=== PATIENT | female | born 1960 | race Caucasian/White ===

== ENCOUNTER → 2018-10-11 | Outpatient (CLI) | payer OTHER ==
[2018-10-11 16:46] VITALS: BP 139/85; PULSE 81; RESP 16; TEMP 97.6; BMI 44.9
--- NOTE | 2018-10-11 17:12 | P.HPBAR ---
Bariatric H&P - History & Physicial H&P Date: 10/11/18 History & Physicial: Visit/CC: band removal Patient initial contact: Initial weight: 121.223 kg Initial weight in pounds: 267.25 Height: 5 ft 5 in Initial BMI: 44.4 Last weight: Current weight: 122.47 kg Current weight in pounds: 270.00 Current BMI: 44.9 [place] body weight (based on NIH guidelines): 56.699 kg Excess body weight loss: The patient is a 57 year-old F who presents for Bariatric Assessment. HPI: She comes in with problems with her band. She is looking to have her band removal. ASSESSMENT: 1. Morbid obesity PLAN: 1. Removal of band 2. Band is mal-positioned. Recommend CT for new abdominal wall mass. Past Medical History Smoking Status: Unknown if ever smoked Surgical - Exam Vital Signs Temp Pulse Resp BP 97.6 F 81 16 139/85 10/11/18 16:43 10/11/18 16:43 10/11/18 16:43 10/11/18 16:43 Bariatric Checklist Checklist: Plan: Checklist: EGD: 1. Hiatal hernia: 2. H. Pylori: HgbA1c: Vitamin D: Smoking: Unknown if ever smoked Primary care physician referral: Psychiatry clearance: Cardiology clearance: Sleep study: Diet journal: VTE risk score: VTE risk level: Rehab needs at discharge:
== END ==
LOC: BARWHC3 06-07 14:31
PROVIDERS: ATTEND Surgery Plastic and Reconstructive Surgery
DX: E66.01 Morbid (severe) obesity due to excess calories (principal); Z68.41 Body mass index [BMI] 40.0-44.9, adult
CPT/HCPCS: 99211

== ENCOUNTER → 2018-10-21 | Outpatient (CLI) | payer OTHER ==
--- NOTE | 2018-10-23 04:22 | CT ---
EXAMINATION TYPE: CT abdomen pelvis w con DATE OF EXAM: 10/21/2018 COMPARISON: NONE HISTORY: 57-year-old female RLQ pain and Diverticulitis TECHNIQUE: Contiguous axial scanning of the abdomen and pelvis following administration of 100 ml Iso brenda 300 IV contrast. Delayed images through the kidneys and coronal/sagittal reconstructions perform ed. CT DLP: 1913 mGycm Automated exposure control for dose reduction was used. FINDINGS: Heart normal size without pericardial effusion. Some strandy atelectasis or scarring within the lower lungs. No pleural effusion. Small hiatal hernia. A lap band device is in place. Liver mildly enlarged at 18.2 cm. No biliary ductal dilatation. Portal venous system is patent. Cholecystectomy clips. Adrenal glands, kidneys, spleen, and pancreas appear within normal limits. No dilated small bowel, free fluid, or free air. No mesenteric or retroperitoneal lymphadenopathy. Scattered mild atherosclerotic calcifications infrarenal abdominal aorta and iliac arteries. The appendix is not discretely visualized. No secondary signs of acute appendicitis. Dropped surgical clip in the right subphrenic region and also right lower quadrant. Mild to moderate stool. Minimal diverticular change in the sigmoid colon. No pericolonic inflammatory change. Bladder is urine distended. Uterus surgically absent. Phleboliths in the pelvis. Neither ovary is vis ualized. No abnormal fluid collection in the pelvis or pelvic lymphadenopathy. Bones: No osseous destructive process. IMPRESSION: LAP BAND DEVICE IN PLACE. SMALL HIATAL HERNIA. MILD HEPATOMEGALY (18.2 CM). MILD DIVERTICULAR CHANGE IN THE SIGMOID COLON. NO EVIDENCE FOR ACUTE DIVERTICULITIS.
== END | disposition home or self-care (01) ==
LOC: RADCTMAIN 10:55
PROVIDERS: ATTEND Surgery Plastic and Reconstructive Surgery
DX: K44.9 Diaphragmatic hernia without obstruction or gangrene (principal); R16.0 Hepatomegaly, not elsewhere classified
CPT/HCPCS: 74177; Q9967

== ENCOUNTER → 2018-11-08 | Outpatient (CLI) | payer OTHER ==
[2018-11-08 14:41] VITALS: BP 134/70; PULSE 75; TEMP 98.3; BMI 44.6
--- NOTE | 2018-11-08 14:46 | P.PN ---
Subjective Progress Note Date: 11/08/18 Reviewed lower scope for NO diverticulosis. band in position and port. Wants removal. Objective - Vital Signs Vital signs: Vital Signs Temp 98.3 F 11/08/18 14:29 Pulse 75 11/08/18 14:29 Resp BP 134/70 11/08/18 14:29 Pulse Ox Intake & Output 11/07/18 11/08/18 11/08/18 18:59 06:59 18:59 Weight 121.563 kg
== END | disposition home or self-care (01) ==
LOC: BARWHC3 13:03
PROVIDERS: ATTEND Surgery Plastic and Reconstructive Surgery
DX: Z48.815 Encounter for surgical aftercare following surgery on the digestive system (principal)
CPT/HCPCS: 99211

== ENCOUNTER → 2019-01-03 | Outpatient (CLI) | payer OTHER ==
[2019-01-03 13:09] VITALS: BP 125/84; PULSE 76; TEMP 97.2; BMI 43.2
--- NOTE | 2019-01-03 14:14 | P.PN ---
Subjective Progress Note Date: 01/03/19 DATE OF SERVICE: 01/03/2019 CHIEF COMPLAINT: Morbid obesity HISTORY OF PRESENT ILLNESS: Viktoria Boyd is a 58-year-old female who comes in with lifelong morbid obesity. She comes in with complications from her adjustable gastric band including intolerance to band fills and gastroesophageal from her band. As a result of her obesity, she has co-morbidities including osteoarthritis of the knees. At height of 5 feet 5 inches, her ideal body weight is 149 pounds. Highest of 270 pounds, BMI 45.0. Today she comes in 259 pounds from 267 pounds 2 months ago. BMI is 43.3. She has lost 8 pounds in 2 months. She is 110 pounds overweight. PAST MEDICAL HISTORY: 1. Morbid obesity due to excess calories 2. Body mass index of 44.9, initial 3. Seasonal ALLERGIES 4. Osteoarthritis of the knees. 5. Gastroesophageal reflux disease. PAST SURGICAL HISTORY: 1. Lap band placement 2. Bilateral knee arthroscopy 3. Hysterectomy 4. Cholecystectomy HOME MEDICATIONS: Home Medications Medication Instructions Recorded Confirmed Fexofenadine HCl [Lisa Allergy] 60 mg PO DIRECTED 10/20/18 10/20/18 Fluticasone Propionate [Flonase 1 spr INTRANASAL DIRECTED 10/20/18 10/20/18 Allergy Relief] ALLERGIES: Allergies Allergy/AdvReac Type Severity Reaction Status Date / Time latex Allergy Rash/Hives Verified 10/20/18 12:27 Penicillins Allergy Rash/Hives Verified 10/20/18 12:27 tetracycline Allergy Rash/Hives Verified 10/20/18 12:27 SOCIAL HISTORY: Past tobacco use. FAMILY HISTORY: No family history of ulcerative colitis disease or Crohn's disease. Family history of morbid obesity. No lupus in the family. No reports of stomach or esophageal cancer. REVIEW OF ORGAN SYSTEMS: CONSTITUTIONAL: At height of 5 feet 5 inches, her ideal body weight is 149 pounds. She comes in 270 pounds. Her body mass index is 45.0 HEENT: Denies any active troubles with vision or hearing. ENDOCRINE: No diabetes. No hypothyroidism. CARDIOVASCULAR: No past reports of palpitations or heart attacks or chest pain. RESPIRATORY: No daytime somnolence. No asthma. GASTROINTESTINAL: Denies any bright red blood per rectum. No diarrhea. No constipation. MUSCULOSKELETAL: Has lower back pain and joint pain. Has osteoarthritis of the knees. NEURO: No headaches. No seizure disorders. PSYCH: No depression. No suicidal ideation. RHEUMATOLOGIC: No lupus. No rheumatoid arthritis. HEMATOLOGIC: Denies any abnormal bleeding or bruising. No personal history of DVTs. SKIN: No rash. No skin cancer. PHYSICAL EXAM: VITAL SIGNS: Height 5 foot 5 inches, weight 259 pounds. BMI 43.3 Vital Signs Temp 97.2 F L 01/03/19 13:06 Pulse 76 01/03/19 13:06 Resp BP 125/84 01/03/19 13:06 Pulse Ox GENERAL: Well-developed in no acute distress. HEENT: No scleral icterus. Extraocular movements grossly intact. Hears conversational speech. No nasal drainage. NECK: Supple without lymphadenopathy. CHEST: Nonlabored respirations with equal bilateral excursions. CARDIOVASCULAR: Regular rate and regular rhythm. Distal 2+ pulses. ABDOMEN: Obese, soft, nontender, nondistended. Has no erythema at port site. MUSCULOSKELETAL: No clubbing, cyanosis. Gross strength 5/5 distal lower extremities. NEURO: No focal or lateralizing signs. Cranial nerves 2 through 12 grossly within normal limits. PSYCH: Appropriate affect. Alert and oriented to person, place and time. SKIN: Good skin turgor. Well perfused. LABS: EKG with premature ASSESSMENT: 1. Morbid obesity due to excess calories 2. Body mass index of 45.0 to 43.3 3. Seasonal ALLERGIES 4. Osteoarthritis of the knees. 5. Complications from adjustable gastric band PLAN: 1. Recommend band removal secondary to complications from her adjustable gastric band. 2. DVT prophylaxis 3. Antibiotic prophylaxis 4. Recommend 12-lead EKG 5. Recommend pre-surgical labs. Objective - Vital Signs Vital signs: Vital Signs Temp 97.2 F L 01/03/19 13:06 Pulse 76 01/03/19 13:06 Resp BP 125/84 01/03/19 13:06 Pulse Ox Intake & Output 01/02/19 01/03/19 01/03/19 18:59 06:59 18:59 Weight 117.934 kg
== END | disposition home or self-care (01) ==
LOC: BARWHC3 12:27
PROVIDERS: ATTEND Surgery Plastic and Reconstructive Surgery
DX: E66.01 Morbid (severe) obesity due to excess calories (principal); M17.0 Bilateral primary osteoarthritis of knee; K95.09 Other complications of gastric band procedure; J30.2 Other seasonal allergic rhinitis; Z68.42 Body mass index [BMI] 45.0-49.9, adult
CPT/HCPCS: 99211

== ENCOUNTER → 2019-01-03 | Outpatient (CLI) | payer OTHER ==
[2019-01-03 13:21] LABS: Basophils # (A) 0.2 k/uL (0-0.2); Basophils % (A) 2 %; Eosinophils # (A) 0.3 k/uL (0-0.7); Eosinophils % (A) 3 %; HCT 42.3 % (34.0-46.0); HGB 14.4 gm/dL (11.4-16.0); Lymphocytes # (A) 3.4 k/uL (1.0-4.8); Lymphocytes % (A) 35 %; MCH 30.2 pg (25.0-35.0); MCHC 34.2 g/dL (31.0-37.0); MCV 88.3 fL (80.0-100.0); Mean Platelet Volume 7.6; Monocytes # (A) 0.7 k/uL (0-1.0); Monocytes % (A) 7 %; Neutrophils # (A) 4.9 k/uL (1.3-7.7); Neutrophils % (A) 51 %; Platelet Count 302 k/uL (150-450); RBC 4.78 m/uL (3.80-5.40); WBC 9.6 k/uL (3.8-10.6)
[2019-01-03 13:35] LABS: ALT 29 U/L (9-52); AST 26 U/L (14-36); African American GFR (CKD) >90 (>60 ml/min/1.73 sqM); Albumin 4.5 g/dL (3.5-5.0); Alkaline Phosphatase 109 U/L (38-126); Anion Gap 10 mmol/L; Blood Urea Nitrogen 14 mg/dL (7-17); Calcium 9.7 mg/dL (8.4-10.2); Carbon Dioxide 24 mmol/L (22-30); Chloride 105 mmol/L (98-107); Glucose 86 mg/dL (74-99); Non-African American GFR(CKD) >90 (>60 ml/min/1.73 sqM); Potassium 4.5 mmol/L (3.5-5.1); Sodium 139 mmol/L (137-145); Total Bilirubin 0.5 mg/dL (0.2-1.3); Total Protein 7.7 g/dL (6.3-8.2)
== END | disposition home or self-care (01) ==
LOC: LABPAT 12:37
PROVIDERS: ATTEND Surgery Plastic and Reconstructive Surgery
DX: Z01.812 Encounter for preprocedural laboratory examination (principal); Z01.818 Encounter for other preprocedural examination
CPT/HCPCS: 36415; 80053; 85025; 93005

== ENCOUNTER 2021-02-02 07:16 | Day surgery (SDC) | payer OTHER ==
[2021-01-27 14:39] VITALS: BMI 42.4
[~2021-02-02 07:16] MED LIST: CHLORHEXIDINE GLUCONATE 15 ML CUP MUCOUS MEM PRN; DEXAMETHASONE SOD PHOSPHATE 4 MG/ML 1 ML VIAL IV ONE; ENOXAPARIN 40 MG/0.4 ML SYRINGE SQ PRN; LACTATED RINGERS 1,000 ML IV SCH; MIDAZOLAM 2 MG/2 ML VIAL IV PRN; ONDANSETRON 4 MG/2 ML VIAL IVP ONE; SCOPOLAMINE 1.5MG/72HR PATCH TRANSDERM ONE
--- NOTE | 2021-02-02 07:45 | P.GSHP ---
History of Present Illness H&P Date: 02/02/21 CHIEF COMPLAINT: Morbid obesity HISTORY OF PRESENT ILLNESS: Viktoria Boyd is a 60-year-old female who comes in with lifelong morbid obesity. She comes in with complications from her adjustable gastric band including intolerance to band fills and gastroesophageal from her band. As a result of her obesity, she has co-morbidities including osteoarthritis of the knees. At height of 5 feet 5 inches, her ideal body weight is 149 pounds. Highest of 270 pounds, BMI 45.0. Today she comes in 259 pounds from 267 pounds 2 months ago. BMI is 43.3. She has lost 8 pounds in 2 months. She is 110 pounds overweight. PAST MEDICAL HISTORY: 1. Morbid obesity due to excess calories 2. Body mass index of 44.9, initial 3. Seasonal ALLERGIES 4. Osteoarthritis of the knees. 5. Gastroesophageal reflux disease. PAST SURGICAL HISTORY: 1. Lap band placement 2. Bilateral knee arthroscopy 3. Hysterectomy 4. Cholecystectomy HOME MEDICATIONS: See below ALLERGIES:See below SOCIAL HISTORY: Past tobacco use. FAMILY HISTORY: No family history of ulcerative colitis disease or Crohn's disease. Family history of morbid obesity. No lupus in the family. No reports of stomach or esophageal cancer. REVIEW OF ORGAN SYSTEMS: CONSTITUTIONAL: At height of 5 feet 5 inches, her ideal body weight is 149 pounds. She comes in 270 pounds. Her body mass index is 45.0 HEENT: Denies any active troubles with vision or hearing. ENDOCRINE: No diabetes. No hypothyroidism. CARDIOVASCULAR: No past reports of palpitations or heart attacks or chest pain. RESPIRATORY: No daytime somnolence. No asthma. GASTROINTESTINAL: Denies any bright red blood per rectum. No diarrhea. No constipation. MUSCULOSKELETAL: Has lower back pain and joint pain. Has osteoarthritis of the knees. NEURO: No headaches. No seizure disorders. PSYCH: No depression. No suicidal ideation. RHEUMATOLOGIC: No lupus. No rheumatoid arthritis. HEMATOLOGIC: Denies any abnormal bleeding or bruising. No personal history of DVTs. SKIN: No rash. No skin cancer. PHYSICAL EXAM: VITAL SIGNS: Height 5 foot 5 inches, weight 259 pounds. BMI 43.3 GENERAL: Well-developed in no acute distress. HEENT: No scleral icterus. Extraocular movements grossly intact. Hears conversational speech. No nasal drainage. NECK: Supple without lymphadenopathy. CHEST: Nonlabored respirations with equal bilateral excursions. CARDIOVASCULAR: Regular rate and regular rhythm. Distal 2+ pulses. ABDOMEN: Obese, soft, nontender, nondistended. Port present MUSCULOSKELETAL: No clubbing, cyanosis. NEURO: No focal or lateralizing signs. Cranial nerves 2 through 12 grossly within normal limits. PSYCH: Appropriate affect. Alert and oriented to person, place and time. SKIN: Good skin turgor. Well perfused. ASSESSMENT: 1. Morbid obesity due to excess calories 2. Body mass index of 45.0 to 43.3 3. Seasonal ALLERGIES 4. Osteoarthritis of the knees. 5. Complications from adjustable gastric band PLAN: 1. Recommend band removal secondary to complications from her adjustable gastric band. Past Medical History Past Medical History: GERD/Reflux, Pneumonia Additional Past Medical History / Comment(s): COVID - September 2020. COVID- pneumonia September 2020. hypoglycemia History of Any Multi-Drug Resistant Organisms: None Reported Past Surgical History: Bariatric Surgery, Cholecystectomy, Hysterectomy, Orthopedic Surgery Additional Past Surgical History / Comment(s): Right knee arthroscopy x2, lap band placed 2007-. Past Anesthesia/Blood Transfusion Reactions: No Reported Reaction Additional Past Anesthesia/Blood Transfusion Reaction / Comment(s): No blood transfusion to date Smoking Status: Former smoker - Past Family History Mother Family Medical History: No Reported History Medications and Allergies Home Medications Medication Instructions Recorded Confirmed Type Fexofenadine HCl [Lisa Allergy] 60 mg PO DAILY 10/20/18 02/02/21 History Fluticasone Propionate [Flonase 1 spr INTRANASAL HS 10/20/18 02/02/21 History Allergy Relief] Biotin [Biotin Disolve] 5,000 mcg PO DAILY 11/08/18 02/02/21 History Cyanocobalamin/Cobamamide [Vitamin 1 each SL DAILY 11/08/18 02/02/21 History B-12 5,000 Mcg Tab Sl] Multivitamin with Iron 1 tab PO DAILY 11/08/18 02/02/21 History [Multivitamins with Iron] Cholecalciferol [Vitamin D3 (25 25 mcg PO DAILY 12/24/20 02/02/21 History Mcg = 1000 Iu)] Albuterol Inhaler [Ventolin Hfa 2 puff INHALATION QID PRN 01/27/21 02/02/21 History Inhaler] Famotidine [Pepcid] 20 mg PO HS PRN 01/27/21 02/02/21 History Omeprazole 20 mg PO DAILY 01/27/21 02/02/21 History Allergies Allergy/AdvReac Type Severity Reaction Status Date / Time lansoprazole [From Prevacid] Allergy Rash/Hives Verified 02/02/21 07:37 latex Allergy Rash/Hives Verified 02/02/21 07:37 Penicillins Allergy Rash/Hives Verified 02/02/21 07:37 tetracycline Allergy Rash/Hives Verified 02/02/21 07:37
[2021-02-02] MEDS ORDERED: SCOPOLAMINE 1.5MG/72HR PATCH TRANSDERM STA (07:54)
[2021-02-02] MEDS ORDERED: GABAPENTIN 300 MG CAP PO STA (07:54)
[2021-02-02] MEDS ORDERED: ACETAMINOPHEN TAB 500 MG TAB PO STA (07:54)
[2021-02-02] MEDS ORDERED: LIDOCAINE 1% (10MG/ML) FOR IV START INTRADERMA ONE ×2 (08:02→08:08)
[2021-02-02] MEDS ORDERED: HEPARIN SODIUM,PORCINE/PF 5,000 UNIT/0.5 ML SYRINGE SQ PRN (08:03)
[2021-02-02 08:08] LABS: HCT 43.1 % (34.0-46.0); MCH 29.8 pg (25.0-35.0); MCHC 32.5 g/dL (31.0-37.0); MCV 91.6 fL (80.0-100.0); Mean Platelet Volume 8.1; Platelet Count 320 k/uL (150-450); RDW 12.7 % (11.5-15.5); WBC 7.7 k/uL (3.8-10.6)
[2021-02-02 08:22] LABS: African American GFR (CKD) >90 (>60 ml/min/1.73 sqM); Anion Gap 9 mmol/L; Blood Urea Nitrogen 17 mg/dL (7-17); Calcium 9.6 mg/dL (8.4-10.2); Carbon Dioxide 25 mmol/L (22-30); Chloride 105 mmol/L (98-107); Glucose 105 mg/dL (74-99); Non-African American GFR(CKD) >90 (>60 ml/min/1.73 sqM); Potassium 4.1 mmol/L (3.5-5.1); Sodium 139 mmol/L (137-145)
[2021-02-02] MEDS ORDERED: ROCURONIUM 10 MG/ML (5 ML VIAL) IV ONE (08:33)
[2021-02-02] MEDS ORDERED: NEOSTIGMINE 1 MG/ML 10 ML VIAL ONE (08:33)
[2021-02-02] MEDS ORDERED: GLYCOPYRROLATE 0.2 MG/ML 2 ML VIAL ONE (08:33)
[2021-02-02] MEDS ORDERED: PROPOFOL 10 MG/ML 20 ML VIAL IV ONE (08:33)
[2021-02-02] MEDS ORDERED: HYDROmorphone (PF) 1 MG/ML ONE (08:33)
[2021-02-02] MEDS ORDERED: SUCCINYLCHOLINE CHLORIDE 100 MG/5 ML SYR IV ONE (08:33)
[2021-02-02] MEDS ORDERED: MIDAZOLAM 2 MG/2 ML VIAL ONE (08:33)
[2021-02-02] MEDS ORDERED: LIDOCAINE 1% INJ 10MG/ML (20 ML MDV) ONE (08:33)
[2021-02-02] MEDS ORDERED: fentaNYL (PF) 50 MCG/ML 2 ML AMP ONE (08:33)
[2021-02-02] MEDS ORDERED: MELOXICAM 7.5 MG TAB PO SCH (09:00)
[2021-02-02] MEDS ORDERED: BUPIVACAIN-EPI 0.25%-1:200,000 30 ML VIAL SQ ONE (09:01)
[2021-02-02 10:10] VITALS: TEMP 97
[2021-02-02] MEDS ORDERED: oxyCODONE-APAP 5-325MG 1 EACH TAB PO PRN (10:12)
[2021-02-02] MEDS ORDERED: KETOROLAC 30 MG/ML 1 ML VIAL IVP PRN (10:12)
[2021-02-02] MEDS ORDERED: SIMETHICONE 80 MG CHEWABLE PO SCH (10:15)
[2021-02-02] MEDS: HYDROmorphone 0.5 MG/0.5 ML SYRINGE IVP PRN ×2 (10:19→10:27)
[2021-02-02] MEDS ORDERED: LACTATED RINGERS 1,000 ML IV ONE (10:23)
--- NOTE | 2021-02-02 10:23 | P.OP ---
Date of Procedure: 02/02/21 Description of Procedure: SURGEON: CALI SANTIAGO MD PREOPERATIVE DIAGNOSES: 1. Morbid obesity due to excess calories 2. Body mass index of 44.9, initial 3. Seasonal ALLERGIES 4. Osteoarthritis of the knees. 5. Gastroesophageal reflux disease. 6. Complications from adjustable gastric band POSTOPERATIVE DIAGNOSES: 1. Morbid obesity due to excess calories 2. Body mass index of 44.9, initial 3. Seasonal ALLERGIES 4. Osteoarthritis of the knees. 5. Gastroesophageal reflux disease. 6. Complications from adjustable gastric band 7. Gastritis OPERATION: 1. Robotic-assisted da Tamar Xi laparoscopic removal of adjustable gastric band and all components. 2. Intraoperative esophagogastroduodenoscopy ANESTHESIA: General with local anesthetic. ESTIMATED BLOOD LOSS: 5 mL SPECIMENS REMOVED: 1. Adjustable gastric band and components Condition: stable Disposition: same day COMPLICATIONS: None. Operative Findings: 1. Mild perigastric adhesions from adjustable gastric band. 2. Adjustable gastric band port found along the epigastrium removed in total 3. Gastritis without duodenal or peptic ulcers 4. No band erosion identified. INDICATIONS: The patient is a 60-year-old female who presents with complications of her adjustable gastric band. Surgical options were described including removal of the band. As she has persistent pain and discomfort from the band, removal of the adjustable gastric band and port including all components was proposed. Benefits and risks of the procedure were described. Informed consent was obtained. DESCRIPTION: The patient was brought into the operating room theater. She was placed supine. She had received DVT prophylaxis. After general induction, the abdomen was prepped and draped in standard sterile fashion. Ioban draping was placed along the abdomen. A robotic da Tamar Xi system was prepped and primed. Attention was brought to removal of the port. The port was palpated along the epigastrium. The port was found along the left subcostal margin of the upper abdominal wall. A transverse 3 cm incision was placed over the adjustable gastric band port site using #11 blade. The incision was deepened to the subcutaneous tissue using electrocautery Bovie cautery. The port was identified and circumferentially dissected free from the surrounding tissues. Once freed, the port was removed from the pocket and placed onto the skin. Prior to incision, a timeout protocol was performed and confirmed with the surgi kobe team. Attention was now brought to the intra-abdominal component of the procedure the removal of the adjustable gastric band. Incisions were proposed at 14 cm from the xiphoid. Proposed port sites were marked with indelible marker along the anterior axillary line bilaterally, mid clavicular line bilaterally with each port marked 10 cm from each other. A 5 mm 0 degrees laparoscopic trocar entry was performed along the left upper quadrant. The abdomen was insufflated to 15 mmHg pressure, which she tolerated well. Diagnostic laparoscopy demonstrated no injury to bowel, viscera, or mesentery. An 8 mm camera port was placed left lateral to the umbilicus at the epigastrium, 12 cm distal to the xiphoid. Next, 8-mm port was placed along the right mid abdomen. The 5 mm port was exchanged for 12 mm trocar. Another 8 mm trocar is placed along the left lateral abdominal wall. The robot was docked along the left lateral abdomen. The patient was repositioned in reverse Trendelenburg position, 21-degrees. A 30-degree camera was used. Using a Prograsp for arm 3, including scissors with cautery for arm 1, the robotic system was docked and primed as described. Instruments were interchanged by the executive administrative assistant. I had sat at the console. The cicatrix around the adjustable gastric band was carefully dissected free. The anti-prolapse stitch was intact. Using scissors with cautery, the cicatrix of the port was incised. The band was then freed. Allergan adjustable gastric band was removed in total. Care was taken to avoid any gastrotomies. The band was unbuckled and cut. The tubing was cut approximately 5 cm distal to the actual adapter. Omental adhesions to the abdominal wall from the band was also divided using cautery. I then went to the head of the bed to perform intraoperative esophagogastroduodenoscopy to evaluate for gastritis and any full thickness injury to the stomach. An Olympus gastroscope was passed from the posterior oropharynx down to the esophagus, where the squamocolumnar junction was found LA grade B erosive esophagitis, chronic changes. The stomach was entered and bile was found and suctioned. Mild chronic gastritis was found along the antrum without gastric ulcers or duodenitis or duodenal ulcers. Retroflexion of the scope confirmed a Hill grade 2 lower esophageal valve. No full-thickness erosion from the prior band was encountered. The stomach was desufflated. The patient tolerated the procedure well. No evidence of leak was encountered from the removal of the band. The scope was removed with desufflation of the stomach. I re-scrubbed into the case. The adjustable gastric band was removed from the abdominal cavity via 12 mm port that was exchanged for the 5-mm port at the left upper abdomen. Diagnostic laparoscopy demonstrated complete removal of all foreign body. The band was removed in total without injury to the stomach. Hemostasis was excellent. All instruments and pneumoperitoneum were evacuated from the abdominal cavity. The port extraction site was hemostatic. The port site was irrigated using normal saline and hydrogen peroxide. The incisions were reapproximated using 4- 0 Monocryl in a subcuticular interrupted fashion. Optifoam dressing was placed over the port extraction site. At the end of the procedure, needle, sponge and instrument counts were verified correct by the surgical processor. The patient had tolerated the procedure well. An abdominal binder was placed. The patient was transferred to Postanesthesia Care Unit in stable condition. Patient's family Vivienne was updated over the telephone in place with the level of care. Plan - Discharge Summary Discharge Rx Participant: Yes New Discharge Prescriptions: New Simethicone [Gas-X] 125 mg PO AC-TID PRN #20 capsule PRN Reason: Pain Acetaminophen Tab [Tylenol Tab] 1,000 mg PO Q6HR PRN #30 tablet PRN Reason: Pain Ibuprofen [Motrin] 600 mg PO Q8HR PRN #30 tab PRN Reason: Pain Continue Fexofenadine HCl [Lisa Allergy] 60 mg PO DAILY Fluticasone Propionate [Flonase Allergy Relief] 1 spr INTRANASAL HS Cyanocobalamin/Cobamamide [Vitamin B-12 5,000 Mcg Tab Sl] 1 each SL DAILY Biotin [Biotin Disolve] 5,000 mcg PO DAILY Multivitamin with Iron [Multivitamins with Iron] 1 tab PO DAILY Omeprazole 20 mg PO DAILY Cholecalciferol [Vitamin D3 (25 Mcg = 1000 Iu)] 25 mcg PO DAILY Famotidine [Pepcid] 20 mg PO HS PRN PRN Reason: Heartburn Albuterol Inhaler [Ventolin Hfa Inhaler] 2 puff INHALATION QID PRN PRN Reason: Shortness Of Breath Discharge Medication List Fexofenadine HCl [Lisa Allergy] 60 mg PO DAILY 10/20/18 [History] Fluticasone Propionate [Flonase Allergy Relief] 1 spr INTRANASAL HS 10/20/18 [History] Biotin [Biotin Disolve] 5,000 mcg PO DAILY 11/08/18 [History] Cyanocobalamin/Cobamamide [Vitamin B-12 5,000 Mcg Tab Sl] 1 each SL DAILY 11/08/18 [History] Multivitamin with Iron [Multivitamins with Iron] 1 tab PO DAILY 11/08/18 [History] Cholecalciferol [Vitamin D3 (25 Mcg = 1000 Iu)] 25 mcg PO DAILY 12/24/20 [History] Albuterol Inhaler [Ventolin Hfa Inhaler] 2 puff INHALATION QID PRN 01/27/21 [History] Famotidine [Pepcid] 20 mg PO HS PRN 01/27/21 [History] Omeprazole 20 mg PO DAILY 01/27/21 [History] Acetaminophen Tab [Tylenol Tab] 1,000 mg PO Q6HR PRN #30 tablet 02/02/21 [Rx] Ibuprofen [Motrin] 600 mg PO Q8HR PRN #30 tab 02/02/21 [Rx] Simethicone [Gas-X] 125 mg PO AC-TID PRN #20 capsule 02/02/21 [Rx] [facility] [facility] [place] [place] [facility] [place] Patient Instructions/Handouts: *Surgery [facility] - Managing Your Pain After Surgery Without Opioids, Abdominal Binder (DC), Adjustable Gastric Band Removal (DC) Activity/Diet/Wound Care/Special Instructions: DO NOT REMOVE UMBILICAL DRESSING. Using antibacterial soap. No lifting over 10 pounds 2 weeksFeb 16June shower. No bathtub soaks for 2 weeks, Feb 16 Wear abdominal binder daily for comfort except for showering. Use ice along incisions for today to prevent swelling. Take tylenol, aleve/ibuprofen, simethicone scheduled for 3 days for best pain relief Discharge Disposition: HOME SELF-CARE
[2021-02-02 11:28] VITALS: RESP 16
[2021-02-02 11:37] VITALS: BP 138/63; PULSE 70
== END 2021-02-02 12:29 | disposition home or self-care (01) ==
LOC: OR 07:16
PROVIDERS: ATTEND Surgery Plastic and Reconstructive Surgery
DX: K95.09 Other complications of gastric band procedure (principal); K29.70 Gastritis, unspecified, without bleeding; K22.10 Ulcer of esophagus without bleeding; K66.0 Peritoneal adhesions (postprocedural) (postinfection); E66.01 Morbid (severe) obesity due to excess calories; Z68.41 Body mass index [BMI] 40.0-44.9, adult; J30.2 Other seasonal allergic rhinitis; M17.0 Bilateral primary osteoarthritis of knee; K21.9 Gastro-esophageal reflux disease without esophagitis; Z98.890 Other specified postprocedural states; Z90.710 Acquired absence of both cervix and uterus; Z90.49 Acquired absence of other specified parts of digestive tract; Z87.891 Personal history of nicotine dependence; Z87.01 Personal history of pneumonia (recurrent); Z86.16 Personal history of COVID-19; E16.2 Hypoglycemia, unspecified; Z79.899 Other long term (current) drug therapy; Z88.0 Allergy status to penicillin; Z88.8 Allergy status to other drugs, medicaments and biological substances; Z88.1 Allergy status to other antibiotic agents; Z91.040 Latex allergy status
CPT/HCPCS: 43235; 43774; S2900; 80048; 85027